=== PATIENT | female | born 1965 | race Caucasian/White ===

== ENCOUNTER → 2021-09-02 15:55 | Outpatient (CLI) | payer OTHER, SELFPAY ==
--- NOTE | ~2021-09-02 | MM_ITS ---
EXAMINATION: MM screening elif BI w leila HISTORY: Screening TECHNIQUE: Craniocaudal and mediolateral oblique 3-D tomosynthesis images were obtained and synthetic 2-D images were generated. CAD analysis was submitted and interpreted. COMPARISON: Comparison to multiple prior studies sequentially, with oldest reviewed study dated 04/2012. BREAST PARENCHYMAL COMPOSITION: The breasts are almost entirely fatty. FINDINGS: There is no evidence of suspicious mass, calcification, or architectural distortion to sugg est malignancy in either breast. There has been no suspicious interval change. IMPRESSION: 1. No mammographic evidence of malignancy. 2. Recommend routine screening mammography in one year. BI-RADS Category 1: Negative Reviewed, dictated and finalized at location A. 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
== END ==
PROVIDERS: PCP Nurse Practitioner Family; Visit Provider Nurse Practitioner Family
DX: Z12.31 Encounter for screening mammogram for malignant neoplasm of breast (principal)
CPT/HCPCS: 77063; 77067

== ENCOUNTER 2021-09-07 00:28 | Day surgery (SDC) | payer OTHER, SELFPAY ==
[2021-08-26 08:06] VITALS: BMI 42.5
--- NOTE | 2021-09-07 06:59 | PM.HPGS ---
History of Present Illness History of Present Illness Consent: Risks, benefits, and alternatives have been discussed and questions answered. Patient agrees to proceed with procedure. Chief complaint: diverticulitis Narrative: Sonia Sebastian is a 55 year old female For because of recurrent problems with diverticulitis. She has been treated with antibiotics in the past. She takes dicyclomine as well Review of Systems Review of Systems: All systems reviewed & are unremarkable except as noted in HPI and below PMFSH Social History Social History Smoking status: Never smoker Living arrangements: with family Spiritual care concerns: No Meds Home Medications and Allergies Home Medications Medication Instructions Recorded Confirmed Type cholecalciferol (vitamin D3) 50 mcg PO DAILY 08/26/21 09/07/21 History [Vitamin D3] metoprolol tartrate 50 mg PO DAILY 08/26/21 09/07/21 History omeprazole 20 mg PO DAILY 08/26/21 09/07/21 History Allergies Allergy/AdvReac Type Severity Reaction Status Date / Time Penicillins Allergy Intermediate possible Verified 09/07/21 08:32 anaphylaxis aspirin AdvReac Intermediate emesis Verified 09/07/21 08:32 Exam Const: General: alert Nutritional Appearance: obese Orientation/consciousness: patient oriented x3 Resp: Auscultation: clear to auscultation bilaterally Cardio: Rhythm: regular rhythm GI: GI Palp: Yes Soft to palpation and No Tenderness to palpation present (GI) Neuro: General: patient oriented x3 Assessment and Plan Assessment and plan (1) Diverticulitis: Code(s): K57.92 - Diverticulitis of intestine, part unspecified, without perforation or abscess without bleeding Status: Acute Assessment and Plan: Colonoscopy with possible biopsy or polypectomy or cautery or injection of substances.
[2021-09-07 08:34] VITALS: BP 152/75; PULSE 63; RESP 17; TEMP 36.1; O2SAT 96; BMI 40.8
[2021-09-07] MEDS: LACTATED RINGERS 1,000 ML 150 ML IV CONT (08:36)
--- NOTE | 2021-09-07 08:45 | WPDGICN ---
Assessment and Plan Assessment and plan (1) Colon cancer screening: Code(s): Z12.11 - Encounter for screening for malignant neoplasm of colon Status: Acute Assessment and Plan: Colonoscopy with possible biopsy or polypectomy or cautery or injection of substances. (2) Diverticulitis: Code(s): K57.92 - Diverticulitis of intestine, part unspecified, without perforation or abscess without bleeding Status: Acute Assessment and Plan: We will try to obtain results her last CT scan. Colonoscopy will rule out other pathology GI Consult Note Consult date/time: 09/07/21 08:45 HPI: Sonia Sebastian is a 55 year old female Referred for colonoscopy for screening. She also has been suffering from diverticulitis. She had an episode about 2 years ago and another 1 a few months ago. Both attacks or treated with antibiotics. She believes that she had a CT scan with the 1st episode. She states that her symptoms would wax and wane with symptoms more likely to occur after eating certain foods. The pain this time was not a continuous pain. There was no fever. There has been no blood in her stools. She has had no weight loss nausea vomiting. Review of Systems Review of Systems: All systems reviewed & are unremarkable except as noted in HPI and below PMFSH Social History Social History Smoking status: Never smoker Living arrangements: with family Spiritual care concerns: No Meds Home Medications and Allergies Home Medications Medication Instructions Recorded Confirmed Type cholecalciferol (vitamin D3) 50 mcg PO DAILY 08/26/21 09/07/21 History [Vitamin D3] metoprolol tartrate 50 mg PO DAILY 08/26/21 09/07/21 History omeprazole 20 mg PO DAILY 08/26/21 09/07/21 History Allergies Allergy/AdvReac Type Severity Reaction Status Date / Time Penicillins Allergy Intermediate possible Verified 09/07/21 08:32 anaphylaxis aspirin AdvReac Intermediate emesis Verified 09/07/21 08:32 Vital Signs Vital Signs - 24 hr 09/07/21 08:34 Temperature 36.1 C L Pulse Rate 63 Respiratory Rate 17 Blood Pressure 152/75 H Pulse Oximetry 96 Exam Const: General: alert Nutritional Appearance: obese Orientation/consciousness: patient oriented x3 Resp: Auscultation: clear to auscultation bilaterally Cardio: Rhythm: regular rhythm GI: Inspection: obesity GI Palp: Yes Soft to palpation, No Tenderness to palpation present (GI) and No Palpable mass present Auscultation: normal bowel sounds Neuro: General: patient oriented x3
--- NOTE | 2021-09-07 08:54 | WPDANESEPPF ---
Anes - Initial Pre Proc Eval Procedure: Operation Date: 09/07/21 09:45 Proposed Procedures p Colonoscopy - Tod Seo MD Date/Time: 09/07/21 08:54 Surgeon: Tod Seo MD Pre Op Diagnosis: diverticulitis Patient Data Age: 55 Gender: F Height: 1.7 m Weight: 118.4 kg Last Vital Signs Temp 36.1 C L 09/07/21 08:34 Pulse 63 09/07/21 08:34 Resp 17 09/07/21 08:34 BP 152/75 H 09/07/21 08:34 Pulse Ox 96 09/07/21 08:34 Allergies Allergy/AdvReac Type Severity Reaction Status Date / Time Penicillins Allergy Intermediate possible Verified 09/07/21 08:32 anaphylaxis aspirin AdvReac Intermediate emesis Verified 09/07/21 08:32 Home Medications Medication Instructions Recorded Confirmed Type cholecalciferol (vitamin D3) 50 mcg PO DAILY 08/26/21 09/07/21 History [Vitamin D3] metoprolol tartrate 50 mg PO DAILY 08/26/21 09/07/21 History omeprazole 20 mg PO DAILY 08/26/21 09/07/21 History Patient hx anesthesia problems: none Family hx anesthesia problems: none Results Review: All pre-operative results and documents have been reviewed as part of the pre-operative evaluation. [facility] Past Medical History Medical History (Updated 09/07/21 @ 08:54 by Johnny Rodriguez MD) Chronic GERD HTN (hypertension) Osteoarthritis Social History Social History Smoking status: Never smoker Living arrangements: with family Spiritual care concerns: No Anes - Eval Final PreProcedure Day of Procedure 09/07/21 08:54 Patient weight: obese Heart: regular rate and rhythm Lungs: clear to auscultation and normal air movement Airway: Mallampati scale class II Neurological: alert and oriented Last oral intake: >/= 8 hours ASA classification: III Emergent: no Anesthetic plan: proceed Anesthesia type and monitoring: general GIVS Results Review: All pre-operative results and documents have been reviewed as part of the pre-operative evaluation. Informed Consent: The patient's anesthetic plan and its attendant risks and benefits were discussed with the patient/family/POA. Questions were solicited and answers provided to the satisfaction of the patient/family/POA.
[2021-09-07 09:45] VITALS: BP 100/56; PULSE 66; RESP 19; O2SAT 100
[2021-09-07 09:55] VITALS: BP 129/68; PULSE 68; RESP 16; O2SAT 100
[2021-09-07 10:05] VITALS: BP 115/80; PULSE 61; RESP 16; O2SAT 100
== END 2021-09-07 10:15 | disposition home or self-care (01) ==
PROVIDERS: PCP Nurse Practitioner Family; Visit Provider Internal Medicine Gastroenterology
PROC: 0DJD8ZZ Inspection of Lower Intestinal Tract, Via Natural or Artificial Opening Endoscopic (ICD-10-PCS; CPT 45378; principal; 2021-09-07 09:45)
DX: Z12.11 Encounter for screening for malignant neoplasm of colon (principal); K57.30 Diverticulosis of large intestine without perforation or abscess without bleeding; K21.9 Gastro-esophageal reflux disease without esophagitis; I10 Essential (primary) hypertension; M19.90 Unspecified osteoarthritis, unspecified site; E66.01 Morbid (severe) obesity due to excess calories; Z68.41 Body mass index [BMI] 40.0-44.9, adult
CPT/HCPCS: 45378; J2704; J7120

== ENCOUNTER → 2022-11-30 15:51 | Outpatient (CLI) | payer OTHER, SELFPAY ==
--- NOTE | ~2022-11-30 | MM_ITS ---
EXAMINATION: MM screening leif BI w leila HISTORY: Screening mammogram, family history of breast cancer in her mother. TECHNIQUE: Craniocaudal and mediolateral oblique 3-D tomosynthesis images were obtained and synthetic 2-D images were generated. CAD analysis was submitted and interpreted. COMPARISON: 09/02/2021, 02/09/2016, 01/16/2015 BREAST PARENCHYMAL COMPOSITION: There are scattered areas of fibroglandular density. FINDINGS: No suspicious mass, calcification, or architectural distortion are identified in either jeannie ast to suggest malignancy. There has been no suspicious interval change. IMPRESSION: 1. No mammographic evidence of malignancy. 2. Recommend routine screening mammography in one year. BI-RADS Category 1: Negative Reviewed, dictated and finalized at location A.
== END ==
PROVIDERS: PCP Nurse Practitioner Family; Visit Provider Nurse Practitioner Family
DX: Z12.31 Encounter for screening mammogram for malignant neoplasm of breast (principal)
CPT/HCPCS: 77063; 77067

== ENCOUNTER 2024-03-03 15:04 | Emergency (ER) | payer BC, SELFPAY ==
--- NOTE | ~2024-03-03 | XR_ITS ---
EXAMINATION: XR hip RT 2V w AP pelvis DATE: 03/03/2024 16:21 INDICATION: Right hip pain radiating down the right leg TECHNIQUE: Anteroposterior view of the pelvis and anteroposterior and frog-leg lateral views of the r ight hip were obtained. COMPARISON: None. FINDINGS: Alignment is normal. No fracture or suspected osteonecrosis. Mild osteoarthritis at the bilateral hip and sacroiliac joints. At least mild lower lumbar spondylosis with asymmetric facet osteoarthritis, moderate on the right at L4-L5 and severe on the right at L5-S1. IMPRESSION: 1. No acute osseous abnormality. 2. Polyarticular osteoarthritis, moderate to severe at the right lower lumbar facet joints and mild a t the bilateral hip and sacroiliac joints. Reviewed, dictated and finalized at location A. IMPRESSION: 1. No acute osseous abnormality. 2. Polyarticular osteoarthritis, moderate to severe at the right lower lumbar f acet joints and mild at the bilateral hip and sacroiliac joints.
--- NOTE | ~2024-03-03 | CT_ITS ---
EXAMINATION: CT hip RT wo con DATE: 03/03/2024 17:43 INDICATION: Right hip pain TECHNIQUE: High resolution computed tomography (CT) of the right hip was performed without intravenou s contrast. Additional sagittal and coronal reconstructions were performed. Automated exposure contro l and iterative reconstruction technique were employed. The dose-length product was 811.15 mGy-cm. COMPARISON: None FINDINGS: Alignment is normal. No fracture. Mild right hip and sacroiliac osteoarthritis. Few small bone island s at the right acetabulum and right femoral head. No hip joint effusion. Surrounding soft tissues are unremarkable. Normal appendix. The uterus is not identified and has likely been surgically resected. The IMPRESSION: 1. Mild right hip and sacroiliac osteoarthritis. No acute osseous abnormality. Reviewed, dictated and finalized at location A.
[2024-03-03 15:12] VITALS: BP 152/62; PULSE 67; RESP 18; TEMP 36.3; O2SAT 100
--- NOTE | 2024-03-03 15:53 | ED.GENADULT ---
HPI - General Adult General Chief complaint: Extremity Injury, Lower Stated complaint: Pt injured right hip after stretching Time Seen by Provider: 03/03/24 15:38 History of Present Illness HPI narrative: 58-year-old female presented to the emergency department for evaluation for right hip pain. Patient states she was having some sciatic issues with her left leg and she was stretching with her left leg on the armrest of the couch and when she stood up she had increased pain in the right hip. Patient states she has increased pain with moving the right leg. Patient states with ambulation the pain radiates down the right leg. Related Data Home Medications Medication Instructions Recorded Confirmed cholecalciferol (vitamin D3) 50 50 mcg PO DAILY 08/26/21 09/07/21 mcg (2,000 unit) tablet (Vitamin D3) metoprolol tartrate 50 mg tablet 50 mg PO DAILY 08/26/21 09/07/21 omeprazole 20 mg tablet,delayed 20 mg PO DAILY 08/26/21 09/07/21 release Allergies Allergy/AdvReac Type Severity Reaction Status Date / Time Penicillins Allergy Intermediate possible Verified 03/03/24 15:06 anaphylaxis aspirin AdvReac Intermediate emesis Verified 03/03/24 15:06 Review of Systems Review of Systems: All systems reviewed & are unremarkable except as noted in HPI and below PMFSH Past Medical History Medical History (Updated 03/03/24 @ 18:05 by Kush Beaulieu MD) Chronic GERD HTN (hypertension) Osteoarthritis Social History Social History Smoking status: Never smoker Living arrangements: with family Spiritual care concerns: No Course Course Emergency Course: Patient was updated on the results of the workup and plan for treatment for home. Vital Signs Vital signs: Vital Signs Temperature 97.3 F L 03/03/24 15:12 Pulse Rate 67 03/03/24 15:12 Respiratory Rate 18 03/03/24 15:12 Blood Pressure 152/62 H 03/03/24 15:12 Pulse Oximetry 100 03/03/24 15:12 Oxygen Delivery Room Air 03/03/24 15:12 Temperature 98 F 03/03/24 18:21 Pulse Rate 72 03/03/24 18:21 Respiratory Rate 16 03/03/24 18:21 Blood Pressure 144/72 H 03/03/24 18:21 Pulse Oximetry 98 03/03/24 18:21 Oxygen Delivery Room Air 03/03/24 15:12 Medical Decision Making MDM Narrative Medical decision making narrative: 58-year-old female presents emergency department for evaluation of right hip pain. X-ray was negative for acute fracture dislocation. Patient was still having pain with ambulation. CT was ordered and shows no evidence of call fracture. Suspect sciatica versus strain. Patient was provided medications for pain control and advised to use a walker at home. Patient was also advised to have close follow-up with Orthopedics. All questions concerns were addressed. Differential Diagnosis Differential Diagnosis: Hip strain, groin strain, sciatica, hip fracture Vital Signs Vital Signs: Vital Signs Temperature 97.3 F L 03/03/24 15:12 Pulse Rate 67 03/03/24 15:12 Respiratory Rate 18 03/03/24 15:12 Blood Pressure 152/62 H 03/03/24 15:12 Pulse Oximetry 100 03/03/24 15:12 Oxygen Delivery Room Air 03/03/24 15:12 Temperature 98 F 03/03/24 18:21 Pulse Rate 72 03/03/24 18:21 Respiratory Rate 16 03/03/24 18:21 Blood Pressure 144/72 H 03/03/24 18:21 Pulse Oximetry 98 03/03/24 18:21 Oxygen Delivery Room Air 03/03/24 15:12 Lab Data Lab results reviewed: Yes I reviewed the patient's lab results. Imaging Data Radiologist's impression: Impressions Hip/Pelvis X-Ray 03/03/24 17:01 IMPRESSION: 1. No acute osseous abnormality. 2. Polyarticular osteoarthritis, moderate to severe at the right lower lumbar facet joints and mild at the bilateral hip and sacroiliac joints. Hip CT 03/03/24 17:46 IMPRESSION: 1. Mild right hip and sacroiliac osteoarthritis. No acute osseous abnormality. Dischar
[2024-03-03] MEDS: CYCLOBENZAPRINE HCL 10 MG TABLET PO (15:58)
[2024-03-03] MEDS: HYDROcodone/acetaminophen (*CRX) 5-325 MG TABLET 1 TAB PO (15:58)
[2024-03-03 18:21] VITALS: BP 144/72; PULSE 72; RESP 16; TEMP 36.6; O2SAT 98
== END 2024-03-03 18:22 | disposition home or self-care (01) ==
PROVIDERS: Emergency Provider Emergency Medicine; PCP Nurse Practitioner
DX: M25.551 Pain in right hip (principal); I10 Essential (primary) hypertension; K21.9 Gastro-esophageal reflux disease without esophagitis; M19.90 Unspecified osteoarthritis, unspecified site; M16.0 Bilateral primary osteoarthritis of hip; M46.1 Sacroiliitis, not elsewhere classified
CPT/HCPCS: 73502; 73700; 99284; A9270

== ENCOUNTER 2024-03-05 14:19 | Outpatient (CLI) | payer BC, SELFPAY ==
--- NOTE | ~2024-03-05 | MM_ITS ---
EXAMINATION: MM screening leif BI w leila HISTORY: Screening TECHNIQUE: Craniocaudal and mediolateral oblique 3-D tomosynthesis images were obtained and synthetic 2-D images were generated. CAD analysis was submitted and interpreted. COMPARISON: No prior mammogram is available for comparison at this institution. BREAST PARENCHYMAL COMPOSITION: Dense: The breasts are heterogeneously dense, which may obscure small masses FINDINGS: There is no evidence of suspicious mass, calcification, or architectural distortion to sugg est malignancy in either breast. There has been no suspicious interval change. IMPRESSION: 1. No mammographic evidence of malignancy. 2. Recommend routine screening mammography in one year. BI-RADS Category 1: Negative Reviewed, dictated and finalized at location B.
== END 2024-03-05 14:20 ==
LOC: MICIMG 14:25
PROVIDERS: PCP Nurse Practitioner; Visit Provider Nurse Practitioner
DX: Z12.31 Encounter for screening mammogram for malignant neoplasm of breast (principal)
CPT/HCPCS: 77063; 77067

== ENCOUNTER 2025-06-13 14:45 | Outpatient (CLI) | payer BC, SELFPAY ==
--- NOTE | ~2025-06-13 | MM_ITS ---
EXAMINATION: MM screening leif BI w leila HISTORY: Screening TECHNIQUE: Craniocaudal and mediolateral oblique 3-D tomosynthesis images were obtained and synthetic 2-D images were generated. CAD analysis was submitted and interpreted. COMPARISON: Comparison to multiple prior studies sequentially, with oldest reviewed study dated 02/09/2016. BREAST PARENCHYMAL COMPOSITION: Not Dense: The breasts are almost entirely fatty. FINDINGS: There is a new mass in the periareolar location of the left breast, upper outer quadrant. The right breast is stable without evidence for malignancy. IMPRESSION: 1. New left breast mass. 2. Additional mammographic views and possible breast ultrasound are recommended. BI-RADS Category 0: Incomplete: Needs additional imaging evaluation. Reviewed, dictated and finalized at location B. IMPRESSION: 1. New left breast mass. 2. Additional mammographic views and possible breast ultrasound are recommended . BI-RADS Category 0: Incomplete: Needs additional imaging evaluation.
== END 2025-06-13 14:46 | disposition home or self-care (01) ==
PROVIDERS: PCP Nurse Practitioner; Visit Provider Nurse Practitioner
DX: Z12.31 Encounter for screening mammogram for malignant neoplasm of breast (principal); N63.21 Unspecified lump in the left breast, upper outer quadrant
CPT/HCPCS: 77063; 77067

== ENCOUNTER 2025-07-09 08:07 | Outpatient (CLI) | payer BC, SELFPAY ==
--- NOTE | ~2025-07-09 | MMUS_ITS ---
EXAMINATION: MM diagnostic leif LT w leila, US breast LT limited HISTORY: Additional imaging TECHNIQUE: Craniocaudal and mediolateral oblique 3-D tomosynthesis images were obtained and synthetic 2-D images were generated. CAD analysis was submitted and interpreted. Grayscale sonography over the area(s) of interest with color Doppler if there is a finding. COMPARISON: June 13 BREAST PARENCHYMAL COMPOSITION: There are scattered areas of fibroglandular tissue. MAMMOGRAM FINDINGS: Small circumscribed mass persists in the anterior depth at approximately 12-1 o'clock. There are no suspicious calcifications. No unexplained architectural distortion is seen. There are no skin or nipple abnormalities identified. There is no adenopathy seen on the images submitted. ULTRASOUND FINDINGS: Sonography through the area in question demonstrates a 4 mm superficial echogenic nodule versus some slightly more echogenic tissue. It is possible this accounts for the mammographic finding. IMPRESSION: Probably benign mammographic and sonographic appearance. Six-month follow-up left mammogram and left breast ultrasound are recommended BI-RADS Code: 3 - Probably benign - short-term follow-up is recommended. Reviewed, dictated and finalized at location B. 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 Six-month follow-up le ft mammogram and left breast ultrasound are recommended BI-RADS Code: 3 - Probably benign - short-term follow-up is recommended.
== END 2025-07-09 08:08 | disposition home or self-care (01) ==
LOC: MICIMG 08:08
PROVIDERS: PCP Nurse Practitioner; Visit Provider Nurse Practitioner
DX: R92.8 Other abnormal and inconclusive findings on diagnostic imaging of breast (principal)
CPT/HCPCS: 76642; 77061; 77065; G0279